=== PATIENT | female | born 1955 | race Caucasian/White ===

== ENCOUNTER → 2016-05-16 | Outpatient (CLI) | payer OTHER ==
[~2016-05-16] MED LIST: AMLODIPINE BESYL5 MG PO; AMOXICILLIN PO; CELEXA PO; CITALOPRAM HBR40 MG PO; COUMADIN1 MG PO; DYAZIDE 37.5/251 CAP PO; ENOXAPARIN40 MG/0.4 SQ; FLAGYL PO; HYDROCODON-ACE1 EAC7 PO; HYDROCODONE; HYDROCODONE-APA1 T55 PO; IBUPROFEN OTC; LEVOXYL125 MC1 PO; LISINOPRIL PO; LISINOPRIL10 MG PO; LODINE PO; LOMOTIL TABLET1 TAB PO; LORAZEPAM1 MG PO; LORTAB 10-5001 EACH PO; LORTAB 2.5/5001 TAB PO; MULTIPLE VITAMI1 T11 PO; NAPROSYN500 MG PO; NICOTINE TRANSD21 MG EXT; NORCO 10-325 TA1 TAB PO; NORCO 7.5/325 T1 TAB PO; PERCOCET5/325 PO; PHENERGAN25 MG PO; PREDNISONE PO; RELAFEN500 MG PO; ROCEPHIN2 G/VIAL IV; STOOL SOFTENER100 M1 PO; STRESS PO; SYNTHROID0.05 MG PO; SYNTHROID125 PO; TRIAMCINOLONE A15 G6 EXT; TRIAMTERENE-HC1 EACH PO; TRIAMTERENE-HCT1 TA7 PO; TRIANEX17 GM TOP; VANCOMYCIN IV; VIBRAMYCIN100 M1 DOB; VITAMIN D31000 UNIT PO; VITAMIN D400 UNI1 PO; WELLBUTRIN XL PO; [UNRECOGNIZED DRUG - REMARK]
--- NOTE | ~2016-05-16 | MR31 ---
[facility] A Service of [facility] & [facility] RADIOLOGY TEXT RESULTS PATIENT: NEELAM BEAR LOCATION: [facility] : 53 UNIT #: [id number] AGE: [address]: Dagoberto Chapa II, MD SEX: F ORDER DR: [id number] [facility] [address] [place], [place] [address] [id number] O MR#: [id number] Acc #: [id number] NAME: NEELAM BEAR. : 1955 SEX: F STUDY DATE/TIME: 05/16/2016 9:29 UNIT: [facility] ROOM: STUDY DESCRIPTION: MR Cervical WWo Contrast Attending Physician: Dagoberto Chapa II., M.D. Ordering Physician: Dagoberto Chapa II., M.D. Primary Care Physician: Samuel Nicole M.D. MRI CENTER REPORT This report is preliminary unless electronic signature is present. EXAM MRI of the cervical spine with and without contrast dated 05/16/2016. HISTORY In spring of last year patient had pain in the neck, shoulders and arm. It started and has been worsening. Pain goes down both shoulders and arms. It is also between shoulder blades. Family history of ileus. TECHNIQUE Multisequence multiplanar imaging of the cervical spine was obtained with and without contrast. GFR measured greater than 60. 14 mL of MultiHance was administered intravenously. FINDINGS Vertebral body heights are preserved. There is a 3 mm mild retrolisthesis of C5 with respect to C4, 2.5 mm retrolisthesis T3 with respect to T2 and 3 mm retrolisthesis of T4 with respect to T3. Degenerative disc disease is noted throughout the visualized cervical spine. There is fatty signal changes noted particularly at C3, C4 and in the upper thoracic levels. No destructive bony mass is seen. Cord demonstrates normal expected course, caliber and signal. Imaged posterior fossa and craniovertebral junction are unremarkable. Pre and paravertebral soft tissues do not demonstrate any significant abnormality. C2-3: Concentric disc bulge with small right and left central protrusion. No canal stenosis or neural foraminal narrowing. C3-4: Disc osteophyte complex which is slightly prominent in the center. Bilateral uncinate spurs and mild bilateral neural foraminal narrowing are seen. [facility]. [facility] A Service of [facility] & [facility] RADIOLOGY TEXT RESULTS PATIENT: NEELAM BEAR LOCATION: [facility] : 53 UNIT #: [id number] AGE: [address]: Dagoberto Chapa II, MD SEX: F ORDER DR: C4-5: Mild disc bulge with small central protrusion. No canal stenosis or neural foraminal narrowing. C5-6: Disc osteophyte complex with borderline size to mild canal stenosis. Mild bilateral facet changes are noted with severe left and mild right neural foraminal narrowing. C6-7: Disc bulge with no canal stenosis or neural foraminal narrowing. C7-T1: Mild disc osteophyte complex without canal stenosis or neural foraminal narrowing. Motion artifact significantly limits evaluation of degenerative changes at various levels and attempt has been made after giving allowances to motion artifact. The axial T2 sequence was repeated which also contains motion. Postcontrast sequences do not demonstrate any significant enhancing mass. IMPRESSION 1. Motion artifact significantly limits evaluation. 2. Degenerative changes are noted at multiple levels as described above. It is being evaluated after giving allowances to the artifact. Attempt has been made. 3. Cord demonstrates no significant abnormality. 4. Postcontrast sequences do not demonstrate any enhancing mass. Dictated by... Óscar Ayala M.D. THIS IS AN ELECTRONICALLY VERIFIED REPORT Óscar Ayala M.D. at 05/20/2016 5:15 PM CPR/jessica TD: 05/17/2016 16:12 JOB #: [id number] MRI CENTER REPORT COPY
[2016-05-16 09:26] LABS: POC - CREATININE 0.69 mg/dL (0.44-1.03); POC - GFR >60.0 mL/min (>60)
== END | disposition home or self-care (01) ==
LOC: CMRI 08:33
PROVIDERS: Psychiatry & Neurology Neurology
DX: M54.2 Cervicalgia (principal); M43.12 Spondylolisthesis, cervical region; M50.21 Other cervical disc displacement, high cervical region; M50.221 Other cervical disc displacement at C4-C5 level; M50.223 Other cervical disc displacement at C6-C7 level; M25.78 Osteophyte, vertebrae
CPT/HCPCS: 72156; 82565; A9577

== ENCOUNTER → 2016-10-14 | Outpatient (CLI) | payer OTHER ==
--- NOTE | ~2016-10-14 | MY29 ---
[facility] A Service of [facility] & [facility] RADIOLOGY TEXT RESULTS PATIENT: NEELAM BEAR LOCATION: [facility] : 53 UNIT #: [id number] AGE: [address]: Samuel Nicole MD SEX: F ORDER DR: [id number] [facility] [address] [place], [place] [address] [id number] O MR#: [id number] Acc #: [id number] NAME: NEELAM BEAR : 1955 SEX: F STUDY DATE/TIME: 10/14/2016 12:27 UNIT: [facility] ROOM: STUDY DESCRIPTION: MY SAMY SCREENING W/ CAD BILAT Attending Physician: Samuel Nicole M.D. Referring Physician: Samuel Nicole M.D. Ordering Physician: Samuel Nicole M.D. Primary Care Physician: Samuel Nicole M.D. MEDICAL IMAGING REPORT This report is preliminary unless electronic signature is present EXAM Digital screening mammogram, 10/14/2016, [facility]. HISTORY 61-year-old woman, no risk elevation. New baseline mammogram. COMPARISON Unknown location/date. FINDINGS Digital imaging of each breast was completed utilizing a two-view examination of each breast in craniocaudal and mediolateral-oblique projections. Review and interpretation of digital mammograms include a second review in conjunction with FDA-approved CAD device. There is a normal parenchymal presentation bilaterally consistent with the patient's age. There are no breast masses imaged and no parenchymal asymmetry is visualized. There are no suspicious microcalcifications and I see no focal architectural disturbance. IMPRESSION Negative screening digital mammogram. One-year followup recommended. Patients over the age of 40 are entered into a reminder system with target due date for the next mammogram. A result letter will also be sent to the patient. BIRADS: 1 Negative ADDENDUM Breast parenchyma is fatty replaced. [facility] A Service of [facility] & [facility] RADIOLOGY TEXT RESULTS PATIENT: NEELAM BEAR LOCATION: [facility] : 53 UNIT #: [id number] AGE: [address]: Samuel Nicole MD SEX: F ORDER DR: Dictated by... Home Barboza M.D. THIS IS AN ELECTRONICALLY VERIFIED REPORT Home Barboza M.D. at 10/15/2016 8:08 AM ORALIA/juan TD: 10/14/2016 20:26 JOB #: [id number] MEDICAL IMAGING REPORT Page 1 of 1 COPY
== END | disposition home or self-care (01) ==
LOC: CWCC 12:03
DX: Z12.31 Encounter for screening mammogram for malignant neoplasm of breast (principal); R92.8 Other abnormal and inconclusive findings on diagnostic imaging of breast
CPT/HCPCS: G0202